=== PATIENT | male | born 1960 | race Caucasian/White ===

== ENCOUNTER 2022-06-19 07:26 | Day surgery (SDC) | payer OTHER ==
[~2022-06-19] VITALS: Ht 157.5 cm; Wt 60.0 kg
[2022-06-19] MEDS ORDERED: BENZOCAINE 20% 50 MCG/SPRAY 57 GM TP ONE (07:27)
[2022-06-19] MEDS ORDERED: LIDOCAINE 2% 11 ML JELLY TP ONE (07:27)
[2022-06-19] MEDS ORDERED: LIDOCAINE 4% 50 ML SOLUTION TP ONE (07:27)
[2022-06-19] MEDS ORDERED: SODIUM CHLORIDE 0.9% 1,000 ML IV ONE (07:30)
[2022-06-19 07:42] LABS: COVID AG,FIA SOURCE NASAL SWAB
[2022-06-19] MEDS ORDERED: MIDAZOLAM HCL 2 MG/2 ML VIAL ONE (07:48)
[2022-06-19] MEDS ORDERED: FentaNYL CITRATE PF 100 MCG/2 ML VIAL ONE (07:48)
[2022-06-19] MEDS ORDERED: SODIUM CHLORIDE 0.9% 1,000 ML ONE (07:50)
[2022-06-19 08:51] LABS: GLUCOMETER DEV NAME(LOC) SDS.; GLUCOSE,POINT OF CARE 91 MG/DL (70-110)
[2022-06-19] MEDS ORDERED: MethylPREDNISolone SOD SUCC 125 MG/2 ML VIAL IVP ONE (09:45)
[2022-06-19] MEDS ORDERED: MethylPREDNISolone SOD SUCC 125 MG/2 ML VIAL ONE (10:12)
[2022-06-19] MEDS ORDERED: OXYGEN THERAPY IH SCH (20:00)
== END 2022-06-19 11:35 | disposition home or self-care (01) ==
LOC: SURGERY 07:26
PROVIDERS: ATTEND Internal Medicine Critical Care Medicine
DX: R05.3 Chronic cough (principal); R06.2 Wheezing; R49.0 Dysphonia; R04.2 Hemoptysis; R91.1 Solitary pulmonary nodule; B37.0 Candidal stomatitis; E11.9 Type 2 diabetes mellitus without complications; Z20.822 Contact with and (suspected) exposure to COVID-19; Z79.899 Other long term (current) drug therapy; Z98.890 Other specified postprocedural states
CPT/HCPCS: 31623; 82962; 87101; 87070; 88108; 88305; 31624; 71045; 87015; 87220; 87426; 87206; J3010; J2250; J2930; Q9967; J7030; C9803; Z7610

== ENCOUNTER 2022-11-13 06:12 | Day surgery (SDC) | payer OTHER ==
[~2022-11-13] VITALS: Ht 157.5 cm; Wt 60.9 kg
[2022-11-13] MEDS ORDERED: LIDOCAINE 2% 11 ML JELLY TP ONE (06:13)
[2022-11-13] MEDS ORDERED: ALBUTEROL SULFATE 2.5 MG/0.5 ML NEB SOLUTION NEB ONE (06:13)
[2022-11-13] MEDS ORDERED: LIDOCAINE 4% 50 ML SOLUTION TP ONE (06:13)
[2022-11-13] MEDS ORDERED: BENZOCAINE 20% 50 MCG/SPRAY 57 GM TP ONE (06:13)
[2022-11-13] MEDS ORDERED: SODIUM CHLORIDE 0.9% 1,000 ML IV ONE (07:00)
[2022-11-13] MEDS ORDERED: SODIUM CHLORIDE 0.9% 1,000 ML ONE (07:41)
[2022-11-13] MEDS ORDERED: FentaNYL CITRATE PF 100 MCG/2 ML VIAL ONE (08:09)
[2022-11-13] MEDS ORDERED: MIDAZOLAM HCL 2 MG/2 ML VIAL ONE (08:09)
[2022-11-13 08:26] LABS: GLUCOMETER DEV NAME(LOC) SDS.; GLUCOSE,POINT OF CARE 124 MG/DL (70-110)
[2022-11-13] MEDS ORDERED: MethylPREDNISolone SOD SUCC 125 MG/2 ML VIAL IVP ONE (09:30)
== END 2022-11-13 11:25 | disposition home or self-care (01) ==
LOC: SURGERY 06:12
PROVIDERS: ATTEND Internal Medicine Critical Care Medicine
DX: J38.4 Edema of larynx (principal); B37.0 Candidal stomatitis; F17.210 Nicotine dependence, cigarettes, uncomplicated; E11.9 Type 2 diabetes mellitus without complications
CPT/HCPCS: 31623; 88112; 82962; 87206; 87101; 87220; 87070; 31624; 94640; 71045; 87015; J3010; J2250; J2930; Q9967; J7030; J7613; Z7610